=== PATIENT | male | born 1940 | race Caucasian/White ===

== ENCOUNTER → 2017-08-01 | Outpatient (CLI) | payer MEDICARE ==
--- NOTE | 2017-08-01 13:13 | CT ---
EXAMINATION TYPE: CT chest wo con DATE OF EXAM: 08/01/2017 COMPARISON: 01/30/2010 HISTORY: Hemoptysis CT DLP: [address] of the chest was performed with lung and mediastinal window settings submitted. The la ck of contrast limits evaluation of the vascular, mediastinal and parenchymal structures including th e upper abdomen. LUNGS: The lungs are clear and free of infiltrate. No atelectasis. No pulmonary nodule or mass is de tected. No pleural effusion. Mild scattered subpleural fibrosis. MEDIASTINUM/JAMES: Thoracic aorta is of normal caliber with limited evaluation given lack of contrast . The heart is mildly enlarged. Changes of median sternotomy and CABG. No evidence for mediastinal m ass. No lymph nodes greater than 1cm. UPPER ABDOMEN: There is evidence of cholelithiasis. OTHER: No significant other abnormality. IMPRESSION: 1. COPD with mild interstitial fibrosis. 2. No evidence for pulmonary mass or nodule. No focal consolidation. 3. Cholelithiasis.
== END | disposition home or self-care (01) ==
LOC: RADCTMAIN 12:35
PROVIDERS: ATTEND Family Medicine
DX: J44.9 Chronic obstructive pulmonary disease, unspecified (principal); R04.2 Hemoptysis
CPT/HCPCS: 71250

== ENCOUNTER → 2021-10-09 | Outpatient (CLI) | payer MEDICARE ==
[~2021-10-09] MED LIST: BAMLANIVIMAB (EUA) 700 MG, ETESEVIMAB (EUA) 1,400 MG in SODIUM CHLORIDE 0.9% 50 ML IVPB NR; SODIUM CHLORIDE 0.9% 50 ML IVPB ONE; SODIUM CHLORIDE 0.9% 500 ML 500 ML in EMPTY BAG 1 BAG IV PRN
[2021-10-09 13:29] VITALS: RESP 18; TEMP 98.4
[2021-10-09 14:30] VITALS: BP 145/70; PULSE 53
== END ==
LOC: PROCWHC3 13:13
PROVIDERS: ATTEND Nurse Practitioner
DX: U07.1 COVID-19 (principal); N18.9 Chronic kidney disease, unspecified; E66.9 Obesity, unspecified; J98.4 Other disorders of lung; I51.9 Heart disease, unspecified; Z68.30 Body mass index [BMI] 30.0-30.9, adult; Z88.8 Allergy status to other drugs, medicaments and biological substances
CPT/HCPCS: 96360; J3490; M0243

== ENCOUNTER → 2022-03-22 | Outpatient (CLI) | payer MEDICARE ==
--- NOTE | 2022-03-23 11:00 | MR ---
EXAMINATION TYPE: MR kidney wo/w con DATE OF EXAM: 03/22/2022 COMPARISON: Outside renal ultrasound September 05, 2021. Prior CT abdomen March 14, 2010 HISTORY: Left renal mass. Abnormal recent ultrasound. CONTRAST: Standard multiplanar, multisequence MRI departmental protocol images were obtained without contrast a nd with 9 mL intravenous Gadavist gadolinium contrast. Imaging performed of the abdomen focusing on the bilateral kidneys. FINDINGS: Kidneys: Kidneys symmetric and normal in size. Corresponding to 2010 CT there are multiple bilateral renal lesions. A few are consistent with simple thin-walled cyst. Others including lesion of concern posterior aspect left kidney are not simple cysts with some lesions bilaterally appearing to show pos tcontrast enhancement. At the midpole level there is exophytic 2.7 x 1.9 cm enhancing lesion confirm ed which correlates with the lesion of concern on recent ultrasound, this was present on CT 2010 and axial image 35 perhaps only slightly larger in size on current study. There are additional enhancing partially exophytic solid masses both kidneys, roughly 3-4 masses noted lower pole level right kidney . These were not clearly seen on recent ultrasound. Several were present on 2010 CT however. No hydro nephrosis bilaterally. Other: Lung bases remain grossly clear. The spleen and pancreas appear within normal limits. Tiny dep endent gallstones and gallbladder are felt present. Liver shows mild diffuse signal dropout consisten t with diffuse fatty infiltration. In the right hepatic lobe there is new heterogeneous subtle 2.6 cm round mass isointense on T1-weighted images and slightly hyperintense on T2-weighted images with dyn amic postcontrast imaging showing fairly homogeneous enhancement and delayed phase imaging showing so me residual rim-type enhancement with some central washout making lesion suspicious. Lesion best appr eciated postcontrast image 381 series 901. No suspicious small or large bowel dilatation. Some diverticula into the left and sigmoid colon are r edemonstrated. No intra-abdominal ascites. Visualized osseous structures are intact. IMPRESSION: Confirmation of multiple enhancing solid masses in both kidneys makes multifocal renal ce ll carcinoma not excluded but lesions are stable or only slightly larger in size from 2010 CT favorin g a benign etiology.
== END | disposition home or self-care (01) ==
LOC: RADMRIMAIN 11:23
PROVIDERS: ATTEND Urology
DX: N28.89 Other specified disorders of kidney and ureter (principal)
CPT/HCPCS: 74183; A9585

== ENCOUNTER → 2023-07-02 | Outpatient (CLI) | payer MEDICARE ==
--- NOTE | 2023-07-02 17:43 | CA ---
Transthoracic Echo Report Name: Jaycob Ladd Age: 82 Gender: M : 1940 Exam Date: 07/02/2023 15:11 Exam Location: [facility] Ht (in): 68 Wt (lb): 179 Ordering Physician: Juan Luis Morley MD Attending/Referring Phys: Peyman ROMANO [employer] Artist Palak Mendez, YESSENIA Procedure CPT: Indications: i50.9 Cardiac Hx: Technical Quality: Good Contrast 1: Total Dose (mL): Contrast 2: Total Dose (mL): MEASUREMENTS (Male / Female) Normal Values 2D ECHO LV Diastolic Diameter PLAX 5.8 cm 4.2 - 5.9 / 3.9 - 5.3 cm LV Systolic Diameter PLAX 4.7 cm IVS Diastolic Thickness 1.5 cm 0.6 - 1.0 / 0.6 - 0.9 cm LVPW Diastolic Thickness 1.6 cm 0.6 - 1.0 / 0.6 - 0.9 cm LV Relative Wall Thickness 0.5 RV Internal Dim ED PLAX 3.5 cm LA Systolic Diameter LX 4.5 cm 3.0 - 4.0 / 2.7 - 3.8 cm LV Diastolic Volume MOD 4C 142.1 cm??? LV Systolic Volume MOD 4C 93.5 cm??? LV Ejection Fraction MOD 4C 34.2 % LV Diastolic Length 4C 9.2 cm LV Systolic Length 4C 8.8 cm LV Diastolic Volume MOD 2C 150.5 cm??? LV Systolic Volume MOD 2C 115.4 cm??? LV Ejection Fraction MOD 2C 23.3 % LV Diastolic Length 2C 9.5 cm LV Systolic Length 2C 9.0 cm LA Volume 86.4 cm??? 18 - 58 / 22 - 52 cm??? M-MODE Aortic Root Diameter MM 3.3 cm MV E Point Septal Separation 1.3 cm AV Cusp Separation MM 2.2 cm DOPPLER AV Peak Velocity 149.3 cm/s AV Peak Gradient 8.9 mmHg AI Peak Velocity 438.3 cm/s AI Peak Gradient 76.9 mmHg AI Pressure Half Time 503.3 ms LVOT Peak Velocity 86.1 cm/s LVOT Peak Gradient 3.0 mmHg MV Peak Velocity 171.3 cm/s MV Peak Gradient 11.7 mmHg MV Mean Velocity 69.3 cm/s MV Mean Gradient 2.9 mmHg MV Velocity Time Integral 40.9 cm MV Area PHT 3.0 cm??? MV Deceleration Time 212.4 ms TR Peak Velocity 295.5 cm/s TR Peak Gradient 34.9 mmHg Right Ventricular Systolic Press 38.5 mmHg FINDINGS Left Ventricle Left ventricular ejection fraction is estimated at 30-35 %. Left ventricular cavity size normal. Moderately increased septal wall thickness. Moderately reduced global left ventricular systolic function. Right Ventricle Mild right ventricular dilatation. Mild pulmonary hypertension. Reduced right ventricular global systolic function. Right Atrium Normal right atrial size. Left Atrium Mildly increased left atrial diameter. Severely increased left atrial volume. Mildly increased left atrial area. Mitral Valve Mitral valve thickened. Mitral annular calcification. Mild mitral regurgitation. Aortic Valve Trileaflet aortic valve. Aortic valve sclerosis. Mild aortic regurgitation. Tricuspid Valve Structurally normal tricuspid valve. Pulmonic Valve Structurally normal pulmonic valve. Trace pulmonic regurgitation. Pericardium No pericardial effusion. Aorta Normal size aortic root and proximal ascending aorta. CONCLUSIONS Severe LV systolic dysfunction with an ejection fraction of 30-35% Dilated right ventricle with mild pulmonary hypertension Mild mitral and aortic regurgitation Previewed by: Dr. Geoff Singleton MD (Electronically Signed) Final Date: 02 July 2023 17:42
== END | disposition home or self-care (01) ==
LOC: RADECHMAIN 15:07
PROVIDERS: ATTEND Family Medicine
DX: I50.9 Heart failure, unspecified (principal); I34.0 Nonrheumatic mitral (valve) insufficiency; I35.1 Nonrheumatic aortic (valve) insufficiency; I27.20 Pulmonary hypertension, unspecified
CPT/HCPCS: 93306

== ENCOUNTER → 2024-03-12 | Outpatient (CLI) | payer MEDICARE ==
[2024-03-12 14:00] LABS: African American GFR (CKD) 66 (>60 ml/min/1.73 sqM); Blood Urea Nitrogen 28 mg/dL (9-20); Non-African American GFR(CKD) 57 (>60 ml/min/1.73 sqM)
--- NOTE | 2024-03-12 17:02 | CT ---
EXAMINATION TYPE: CT abdomen pelvis w con DATE OF EXAM: 03/12/2024 COMPARISON: 03/14/2010 HISTORY: BLOOD IN THE STOOL AND ELEVATED LIVER ENZYMES CT DLP: 1648 mGycm Automated exposure control for dose reduction was used. TECHNIQUE: Helical acquisition of images was performed from the lung bases through the pelvis. CONTRAST: Performed with Oral Contrast and with IV Contrast, patient injected with 80ml mL of Isovue 300. FINDINGS: The lung bases are clear. There are multiple gallstones but no gallbladder wall thickening, distention or pericholecystic fluid . The liver parenchyma is heterogeneous and the possibility of a mass in the right lobe cannot be exclu ded. The contour of the liver is lobulated consistent with cirrhosis.. There is no biliary ductal dil atation. There is no focal mass or organomegaly involving the pancreas, spleen and adrenal glands. There is a 2.5 m exophytic mass of the posterior left kidney. It is highly suspicious for neoplasm. M RI of the kidneys might be useful for further evaluation. The caliber the abdominal aorta is normal is no retroperitoneal adenopathy or hemorrhage. The bowel loops are normal in caliber and there is no evidence of dilatation or obstruction. No infla mmatory changes are identified in the bowel wall or mesentery. There is marked diverticulosis of the descending and sigmoid colon but no evidence of diverticulitis. There is no free intraperitoneal air or fluid. No pelvic mass, free fluid, abscess or adenopathy. There is mild prostatic hypertrophy. The osseous structures and soft tissues are intact. IMPRESSION: 1. Cholelithiasis. 2. Cirrhosis of the liver and possible right lobe liver mass. 3. Solid left renal mass suspicious for neoplasm. 4. MRI with and with attention to the kidneys and liver is recommended for further evaluation.
== END | disposition home or self-care (01) ==
LOC: RADCTMAIN 13:19
PROVIDERS: ATTEND Family Medicine
DX: K74.60 Unspecified cirrhosis of liver (principal); K80.20 Calculus of gallbladder without cholecystitis without obstruction; N28.89 Other specified disorders of kidney and ureter; R74.8 Abnormal levels of other serum enzymes
CPT/HCPCS: 82565; 84520; 74177; 36415; Q9967

== ENCOUNTER → 2024-04-09 | Day surgery (SDC) | payer MEDICARE ==
[~2024-04-09] MED LIST changes: -BAMLANIVIMAB (EUA) 700 MG, ETESEVIMAB (EUA) 1,400 MG in SODIUM CHLORIDE 0.9% 50 ML IVPB NR; +LIDOCAINE 1% INJ 10MG/ML (20 ML MDV) ONE; +PROPOFOL 10 MG/ML 20 ML VIAL IV ONE; -SODIUM CHLORIDE 0.9% 50 ML IVPB ONE; -SODIUM CHLORIDE 0.9% 500 ML 500 ML in EMPTY BAG 1 BAG IV PRN
[2024-04-09] MEDS: LACTATED RINGERS 1,000 ML IV SCH (09:24)
--- NOTE | 2024-04-09 09:43 | P.GSHP ---
History of Present Illness H&P Date: 04/09/24 Chief Complaint: GI bleed the eighth 3-year-old male presents today for EGD colonoscopy. Patient's had issues with GI bleed. Past Medical History Past Medical History: Heart Failure, COPD, Hyperlipidemia, Hypertension, Osteoarthritis (OA), Renal Disease, Thyroid Disorder Additional Past Medical History / Comment(s): kidneys at 60%,dx with beginings of heart failure last May. bright red blood in stool. hx of ulcers. History of Any Multi-Drug Resistant Organisms: None Reported Past Surgical History: Coronary Bypass/CABG, Joint Replacement Additional Past Surgical History / Comment(s): cabg 2008, colonoscopy. masses removed from one kidney, Left total knee. Past Anesthesia/Blood Transfusion Reactions: No Reported Reaction Smoking Status: Former smoker - Past Family History Sister(s) Family Medical History: Hypertension Medications and Allergies Home Medications Medication Instructions Recorded Confirmed Type Aspirin 81 mg PO DAILY 10/09/21 04/07/24 History Levothyroxine Sodium [Levo-T] 50 mcg PO DAILY 10/09/21 04/09/24 History Metoprolol Tartrate [Lopressor] 50 mg PO DAILY 10/09/21 04/09/24 History Simvastatin [Zocor] 20 mg PO DAILY 10/09/21 04/09/24 History Furosemide [Lasix] 40 mg PO DAILY 04/07/24 04/09/24 History Spironolactone 25 mg PO DAILY 04/07/24 04/09/24 History Allergies Allergy/AdvReac Type Severity Reaction Status Date / Time arbutamine Allergy Unknown Verified 04/09/24 09:09 Surgical - Exam Vital Signs Temp Pulse Resp BP Pulse Ox 96.8 F L 60 16 149/69 98 04/09/24 09:15 04/09/24 09:15 04/09/24 09:15 04/09/24 09:15 04/09/24 09:15 - General well developed, well nourished, no distress - Eyes PERRL - ENT normal pinna - Neck no masses - Respiratory normal expansion - Cardiovascular Rhythm: regular - Abdomen Abdomen: soft, non tender Assessment and Plan Assessment: surgically. We'll perform EGD colonoscopy.
--- NOTE | 2024-04-09 09:55 | P.OP ---
Date of Procedure: 04/09/24 Preoperative Diagnosis: GI bleed Postoperative Diagnosis: antral gastritis Diverticulosis Procedure(s) Performed: colonoscopy Anesthesia: MAC Surgeon: Dex Ramos Pathology: other (antrum) Condition: stable Disposition: PACU Description of Procedure: the patient's placed on the endoscopy table in the lateral position. He received IV sedation. The gastro-/oropharynx passed in the esophagus and the stomach. Scope was placed through the pylorus. The first and second portion of the duodenum appeared normal. Scope summer back the antrum this. Mildly inflamed. A biopsies performed. The scope was retroflexed the meters stomach appeared normal. The GE junction was at 40 cm. The distal esophagusAppeared inflamed. A biopsies performed. The proximal esophagus appeared normal. Scope withdrawn for patient. There is no evidence of any active upper GI bleed. Next digital rectal exam was performed. This revealed no abnormalities. Flexible colonoscope was then placed patient anus passed throughout the entire colon. The ileocecal valve was visualized. Cecum, ascending and transverse colon appeared normal. The descending and sigmoid colon had a few scattered diverticuli. The scope was brought back the rectum this appeared normal. Scope withdrawn for patient. There is no evidence of any lower GI bleed.
[2024-04-09 10:12] VITALS: TEMP 96.8
[2024-04-09 11:12] VITALS: BP 162/80; PULSE 60; RESP 16
== END | disposition home or self-care (01) ==
LOC: ORWHC2ENDO 08:21
PROVIDERS: ATTEND Surgery
DX: K29.50 Unspecified chronic gastritis without bleeding (principal); I11.0 Hypertensive heart disease with heart failure; I50.9 Heart failure, unspecified; E78.5 Hyperlipidemia, unspecified; J44.9 Chronic obstructive pulmonary disease, unspecified; M19.90 Unspecified osteoarthritis, unspecified site; E07.9 Disorder of thyroid, unspecified; Z95.1 Presence of aortocoronary bypass graft; Z87.891 Personal history of nicotine dependence; Z82.49 Family history of ischemic heart disease and other diseases of the circulatory system; Z79.82 Long term (current) use of aspirin; Z79.890 Hormone replacement therapy; Z88.9 Allergy status to unspecified drugs, medicaments and biological substances
CPT/HCPCS: 88305; 45378; 43239; J2001; J2704

== ENCOUNTER → 2024-05-04 | Outpatient (CLI) | payer MEDICARE ==
--- NOTE | 2024-05-05 11:23 | MR ---
EXAMINATION TYPE: MR abdomen wo/w con DATE OF EXAM: 05/04/2024 5:40 PM CLINICAL INDICATION:Male, 83 years old with history of K76.9 LIVER DISEASE, UNSPECIFIED; PHH, Liver m ass right lobe, renal mass. COMPARISON: MRI 03/22/2022 03/12/2024 TECHNIQUE: Multiplanar multi-sequence imaging was performed without contrast. Post contrast imaging was performed. Post IV contrast subtraction images were also submitted for review. IV Contrast: 8 cc Gadavist FINDINGS: LOWER CHEST: No gross irregularity. ABDOMEN Liver: Nodular contour to liver compatible with cirrhosis. Diffuse hypoattenuating areas throughout t he right hepatic lobe concerning for diffuse infiltrative hepatocellular carcinoma. There is extensiv e involvement within the liver with postcontrast imaging suggesting portal vein infiltration. Series 1001 image 383 postcontrast. Overall area being involved is 15 x 10 x 14 cm. More solid tissue is seen inferiorly in the right hepatic lobe 52 x 41 mm. Additional smaller lesions may also be present scattered throughout the liver. Gallbladder and Bile ducts: No evidence for ductal dilation, or biliary stricture or evidence of chol edocholithiasis. The gallbladder demonstrate multiple gallstones layering dependently. Pancreas: No ductal dilation. No evidence for solid mass. Spleen: Normal for size. Adrenal glands: Unremarkable. Kidneys: No evidence for obstructive uropathy. The largest measuring up to 3 per 5 mm on the right si milar to prior on the left measuring up to 22 mm which is not significantly changed from prior. Addit ional hemorrhagic and proteinaceous cysts as well as simple appearing renal cysts are present. Stomach and Bowel: No evidence for bowel wall thickening or evidence for obstruction. Scattered colon ic diverticula are present. Retroperitoneum/Peritoneum: No evidence of pneumoperitoneum or free fluid. Vasculature: No aortic aneurysm. Musculoskeletal: The osseous structures appear intact. Lymph Nodes: No gross evidence for lymphadenopathy. Abdominal wall: Unremarkable. Bladder is distended with trabeculations. IMPRESSION: 1. Nodular contour to liver compatible with cirrhosis. Diffuse masslike geographic areas areas throu ghout the liver concerning for neoplastic process favoring infiltrative hepatocellular carcinoma give n stability of renal masses compared to 03/22/2022.. There is involvement of the portal venous system w ith tumor extending through the hepatic vascular system. Tissue sampling recommended. No lymphadenopa thy definitively visualized at this time. 2. Multiple enhancing renal masses appear stable in size from prior on 03/22/2022. Additional proteina ceous/hemorrhagic cyst and simple renal cysts bilaterally. 3. Cholelithiasis.
== END | disposition home or self-care (01) ==
LOC: RADMRIMAIN 16:24
PROVIDERS: ATTEND Family Medicine
DX: K80.20 Calculus of gallbladder without cholecystitis without obstruction (principal); N28.1 Cyst of kidney, acquired; N28.89 Other specified disorders of kidney and ureter; K76.9 Liver disease, unspecified; R16.0 Hepatomegaly, not elsewhere classified
CPT/HCPCS: 74183; A9585

== ENCOUNTER → 2024-05-04 | Outpatient (CLI) | payer MEDICARE ==
[2024-05-05 02:35] LABS: Basophils # (A) 0.06 X 10*3/uL (0.00-0.10); Basophils % (A) 0.5 %; Eosinophils # (A) 0.16 X 10*3/uL (0.04-0.35); Eosinophils % (A) 1.4 %; HCT 41.9 % (39.6-50.0); Lymphocytes # (A) 1.49 X 10*3/uL (0.90-5.00); Lymphocytes % (A) 13.3 %; MCH 30.9 pg (27.0-32.0); MCV 99.5 FL (80.0-97.0); Mean Platelet Volume 12.1 FL (9.5-12.2); Monocytes # (A) 0.64 X 10*3/uL (0.20-1.00); Monocytes % (A) 5.7 %; NRBC Per 100 WBC 0 X 10*3/uL (0.00-0.01); Neutrophils # (A) 8.81 X 10*3/uL (1.80-7.70); Neutrophils % (A) 78.7 %; Platelet Count 215 X 10*3/uL (140-440); RBC 4.21 X 10*6/uL (4.40-5.60); RDW 15.9 % (11.5-14.5); WBC 11.21 X 10*3/uL (4.50-10.00)
[2024-05-05 03:01] LABS: ALT 34 U/L (10-49); AST 177 U/L (14-35); Albumin 4.3 g/dL (3.8-4.9); Alkaline Phosphatase 294 U/L (41-126); BUN/Creat Ratio 18.17 Ratio (12.00-20.00); Blood Urea Nitrogen 21.8 mg/dL (9.0-27.0); Calcium 9.4 mg/dL (8.7-10.3); Carbon Dioxide 24.3 mmol/L (21.6-31.8); Chloride 103 mmol/L (96-109); Globulin 3.9 g/dL (1.6-3.3); Glucose 92 mg/dL (70-110); Iron 27 UG/DL (65-175); Potassium 5.1 mmol/L (3.5-5.5); Sodium 142 mmol/L (135-145); Total Bilirubin 0.8 mg/dL (0.3-1.2); Total Iron Binding Capacity 239 UG/DL (228-460); Total Protein 8.2 g/dL (6.2-8.2)
[2024-05-05 05:20] LABS: Hepatitis B Surface Antigen Nonreactive (Nonreactive); Hepatitis C IgG Antibody Nonreactive (Nonreactive)
[2024-05-05 05:31] LABS: Ceruloplasmin 41.2 mg/dL (20.0-60.0)
[2024-05-05 05:37] LABS: Alpha Fetoprotein, Tumor Mkr >47500.00 ng/mL (0.00-7.90)
[2024-05-06 11:45] LABS: Alpha 1 Anti-Trypsin 254 mg/dL (90 - 200)
== END | disposition home or self-care (01) ==
LOC: LABWHC1 15:37
PROVIDERS: ATTEND Internal Medicine Gastroenterology
DX: K74.60 Unspecified cirrhosis of liver (principal); K76.9 Liver disease, unspecified
CPT/HCPCS: 36415; 80053; 82103; 82104; 82105; 82390; 82728; 83540; 83550; 85025; 86039; 86803; 87340

== ENCOUNTER → 2024-06-11 | Outpatient (CLI) | payer MEDICARE ==
--- NOTE | 2024-06-11 16:14 | PE ---
EXAMINATION TYPE: PET CT fusion skull to thigh DATE OF EXAM: 06/11/2024 CLINICAL INDICATION:Male, 83 years old with history of R93.2 LIVER MASS; TECHNIQUE: Following the intravenous administration of 9.73 mCi of F-18 FDG, whole body images are performed from the skull base to the midthigh. Images are reviewed on the computer in the coronal, a xial, and sagittal planes. Reconstructed rotating images are created on independent workstation and reviewed on the computer. A non-contrast CT is performed in conjunction with the PET scan. Glucose level 75 mg/dL CT DLP: 491.45 mGycm, Automated exposure control for dose reduction was used. COMPARISON: CT 03/12/2024, 08/01/2017, PET/CT None, MRI: 05/04/2024, 03/22/2022 FINDINGS: Mediastinal SUV mean is 2.95. Hepatic parenchyma SUV mean is 3.79. SKULL BASE AND NECK: Right parotid gland superficial 1.2 cm lesion with a maximum SUV of 8.85. CHEST, MEDIASTINUM, AND HILAR REGION: No suspicious radiotracer activity. ABDOMEN AND PELVIS: Cirrhotic liver with multifocal regions of significant FDG uptake within the righ t hepatic lobe. Maximum SUV within the inferior right hepatic lobe is 9.06. Additional focal region i dentified within the lateral right hepatic lobe demonstrates a maximum SUV of 8.69. No significant fo mg FDG uptake identified within the left hepatic lobe. Stable posterior left mid kidney exophytic hyperdense lesion measuring 2.7 cm. This demonstrates a ma ximum SUV of 3.69 which is just below background. Additional stable isoechoic inferior right renal exophytic 2.8 cm lesion. This demonstrates a maximum SUV of 2.53 which is below background. MUSCULOSKELETAL STRUCTURES: Focal FDG uptake identified within the T6 vertebral body with a maximum S UV of 8.97. No CT correlate is identified. OTHER CT: Atherosclerotic calcification of the aorta and its branches. Coronary arterial calcificatio ns and/or stents. Post-CABG changes. Mild cardiomegaly. Cholelithiasis. Moderately distended urinary bladder. Colonic diverticulosis. Prominent xiphoid process. Advanced degenerative changes of the bila teral shoulders. Trace perihepatic ascites. IMPRESSION: 1. Cirrhotic liver with multifocal regions of significant FDG uptake within the right hepatic lobe m ost consistent with malignancy. Favored infiltrative hepatocellular carcinoma. No FDG avid lymphadeno lizeth demonstrated. 2. Bilateral hyperdense renal lesions with radiotracer activity below background. Nonspecific etiolo gy with malignancy not excluded. 3. Focal region of radiotracer uptake within the T6 vertebral body without CT correlate. Cannot excl ude osseous metastasis. Consider nuclear medicine bone scan. 4. Right parotid gland FDG avid lesion. Etiologies include benign/malignant salivary gland tumors ve rsus metastasis. Further evaluation with ultrasound is recommended.
== END | disposition home or self-care (01) ==
LOC: RADPETMAIN 06:24
PROVIDERS: ATTEND Internal Medicine Hematology & Oncology
DX: K74.60 Unspecified cirrhosis of liver (principal); R93.2 Abnormal findings on diagnostic imaging of liver and biliary tract
CPT/HCPCS: 78815; A9552